=== PATIENT | male | born 1990 | race Caucasian/White ===

== ENCOUNTER 2023-08-26 13:24 | Emergency (ER) | payer SELFPAY ==
[2023-08-26] VITALS (20 sets, daily range): BP systolic 95–119; BP diastolic 56–78
--- NOTE | 2023-08-26 14:00 | ED.GENMED ---
History of Present Illness
<Pawan Finch, DO - Last Filed: 08/26/23 16:17>
General
Chief Complaint: Substance Abuse
Source: patient and police
Exam Limitations: none
Time Seen by Provider: 08/26/23 13:31
Nursing documentation reviewed up to this point in time: agreed with
Travel History
Have you had any contact with someone who has COVID-19?: No
Do you have any symptoms of coronavirus? Fever > 100 degrees, chills, cough, shortness of breath, sore throat, loss of taste or smell, muscle aches, or headache?: No
History of Present Illness
History of Present Illness:
32-year-old male presents to the emergency department after taking heroin that likely had drank in it. He snorted it. He did this at 10 AM prior to going to a court appearance. Police detained him at court and took him for intake at [facility]
assisted. He was found to be drowsy and falling asleep at intake, and was sent to the emergency department.
Past History
<Pawan Finch, DO - Last Filed: 08/26/23 16:17>
Past History
ED Past Medical History: CHF
ED Past Surgical History: None
Social History
Tobacco: Non-smoker
Alcohol: None
Drug: Narcotics
Living: with family
Review of Systems
<Pawan Finch, DO - Last Filed: 08/26/23 16:17>
Review of Systems
Allergies reviewed?: Yes
All Other Systems: Not applicable
Constitutional: Reports no symptoms
EENT: Reports no symptoms
Respiratory: Reports trouble breathing
Cardiac: Reports no symptoms
ABD/GI: Reports no symptoms
Phy Exam
<Pawan Finch, DO - Last Filed: 08/26/23 16:17>
Physical Exam
Physical Exam:
Physical Exam
General: Drowsy, intoxicated
Neck: supple. no meningeal signs. normal posterior pharynx
Heart: s1/s2 regular rate and rhythm, no murmur. equal radial
pulses.
HEENT: Pupils equal round reactive to light, EOMI
Lungs: no acute respiratory distress. clear bilaterally
Abdomen: normal bowel sounds. not tender. no CVAT
Neuro: alert and oriented. no focal neurological deficits cranial nerves II through XII intact
Skin: no rash
Psychiatric: well kept. interactive and cooperative
Extremities: no edema. no calf tenderness. negative homans. good distal pulses
Course
<Pawan Finch, DO - Last Filed: 08/26/23 16:17>
Vital Signs
Initial and Last Documented VS:
Initial Vital Signs
Temp Pulse Resp BP Pulse Ox
98 F 81 16 119/66 98
08/26/23 13:27 08/26/23 13:27 08/26/23 13:27 08/26/23 13:27 08/26/23 13:27
Last Documented Vital Signs
Temp Pulse Resp BP Pulse Ox
98 F 79 10 115/66 99
08/26/23 13:27 08/26/23 17:00 08/26/23 17:00 08/26/23 17:00 08/26/23 17:00
<Jean Marie Chao, DO - Last Filed: 08/26/23 17:17>
Vital Signs
Initial and Last Documented VS:
Initial Vital Signs
Temp Pulse Resp BP Pulse Ox
98 F 81 16 119/66 98
08/26/23 13:27 08/26/23 13:27 08/26/23 13:27 08/26/23 13:27 08/26/23 13:27
Last Documented Vital Signs
Temp Pulse Resp BP Pulse Ox
98 F 79 10 115/66 99
08/26/23 13:27 08/26/23 17:00 08/26/23 17:00 08/26/23 17:00 08/26/23 17:00
<Pawan Finch, DO - Last Filed: 08/26/23 16:17>
MDM/Problems Addressed
Differential Diagnosis Includes:
Heroin overdose, respiratory failure
MDM/Problems Addressed:
32-year-old male with heroin overdose, he took heroin at 10 AM. Vital signs stable. No signs of respiratory distress, patient is noted to be very tired and asleep very easily. Will observe, and if remains stable will discharge to assisted.
<Pawan Finch, DO - Last Filed: 08/26/23 16:17>
*Pulse Oximetry
Patient hypoxic: no
*EKG
Interpreted by ED Provider?: NA
*Paleology Professor Interpretation
Rate: Paleology Professor- N/A
*Critical Care Note
Total Time (30-74mins, 75-104mins- exclusive of procedures): Not Applicable
<Pawan Finch, DO - Last Filed: 08/26/23 16:17>
Patient Management
Social determinants of health affecting care: Living situation and Substance abuse
Escalation/DeEscalation of care consider admission/obs:
Follow-up admit not indicated
<Jean Marie Chao, DO - Last Filed: 08/26/23 17:17>
Update Note
Update Note:
[id number] patient seen and evaluated. Received in signout from Dr. Finch. Patient on my assessment is easily arousable. He is drinking fluids. Pulse ox 99% on room air. Heart rate 70s and blood pressure normal. Stable. Has not required any
oxygen. Stable for discharge to present
ED Attending Note
<Pawan Finch DO - Last Filed: 08/26/23 16:17>
-
Portions of this chart may have been created with voice recognition software.� Occasional wrong word or��sound alike� substitutions may have occurred due to the inherent limitations of voice recognition software.
Discharge Plan
Departure
Patient Disposition: Home (Routine Discharge)
Date of Disposition: 08/26/23
Time of Disposition: 17:16
Patient with high blood pressure during this ER visit?: No
Condition: Good
Discharge Problem:
Overdose of heroin
Instructions: Opioid Overdose
Referrals:
[facility] [Family Provider] - Call in 1-3 days for appt
Activity Restrictions/Additional Instructions:
You are cleared for incarceration. Return immediately for fevers, difficulty breathing, intractable vomiting or any other concerns. Please be sure to monitor for withdrawal symptoms
Interventions
Interventions:
*Risk Screen - Suicide Last Done: 08/26/23 13:36
*General Assessment Last Done: 08/26/23 13:35
*Neglect/Abuse Screening Last Done: 08/26/23 13:36
*ED COVID-19 Vaccine History Last Done: 08/26/23 13:35
ED-Psychological Assessment Last Done: 08/26/23 13:36
Discharge Date and Time
Print Language: [place]
== END 2023-08-26 17:40 | disposition home or self-care (01) ==
LOC: EMR 13:24
PROVIDERS: EMERGENCY PHYSICIAN Emergency Medicine
DX: T40.1X1A Poisoning by heroin, accidental (unintentional), initial encounter (principal)
CPT/HCPCS: 99282